=== PATIENT | female | born 1940 | race Caucasian/White ===

== ENCOUNTER → 2024-07-10 11:24 | Outpatient (BNVA) | payer MEDICARE, SELFPAY | PROVIDERS: PCP Registered Nurse; Visit Provider Registered Nurse | DX: Z11.52 Encounter for screening for COVID-19 (principal) | CPT/HCPCS: 87426 ==

== ENCOUNTER 2024-07-18 02:33 | Emergency (ER) | payer MEDICARE, SELFPAY ==
--- NOTE | 2024-07-18 02:44 | PC.NURSE ---
At time of triage, patient became uncooperative with attempt to be triaged, such as answering questions regarding height and weight, obtaining vitals, etc. and stated to triage nurse to make up whatever you want, I am just here for a Covid test. Patient also ripped off blood pressure cuff, asking nurse to not puff it up so tight. The doctor came in to talk to the patient and explain that he does not retest for covid in the ER when she was just tested 9 days ago. The patient became furious and asked if she had to be charged for this triage. Patient then left before triage could be finished.
== END 2024-07-18 02:51 | disposition left against medical advice (07) ==
PROVIDERS: Emergency Provider Family Medicine; PCP Registered Nurse
DX: Z53.21 Procedure and treatment not carried out due to patient leaving prior to being seen by health care provider (principal)